=== PATIENT | male | born 1970 ===

== ENCOUNTER 2024-06-03 06:29 | Observation (INO) | payer BC ==
[~2024-06-03] VITALS: Ht 182.9 cm; Wt 169.8 kg
[2024-06-03] MEDS ORDERED: Chlorothiazide250 MG PO (06:46)
[2024-06-03] MEDS ORDERED: HYDCHL25 PO (06:47)
[2024-06-03] MEDS ORDERED: BENAZEPRIL HCL40 M1 PO (06:47)
[2024-06-03] MEDS ORDERED: METHI10 PO (06:48)
[2024-06-03 07:12] LABS: BASOPHILS ABSOLUTE AUTO 0.04 K/mm3 (0.00-0.23); BASOPHILS PERCENT AUTO 0 % (0-2); EOSINOPHILS ABSOLUTE AUTO 0.27 K/mm3 (0.00-0.68); EOSINOPHILS PERCENT AUTO 3 % (0-6); Hematocrit 48.1 % (37.0-53.0); Hemoglobin 14.7 g/dL (13.5-17.5); IMMATURE GRAN ABSOLUTE AUTO 0.05 K/mm3 (0.00-0.10); IMMATURE GRAN PERCENT AUTO 1 % (0-1); LYMPHOCYTES ABSOLUTE AUTO 2.21 K/mm3 (0.84-5.20); LYMPHOCYTES PERCENT AUTO 24 % (21-46); MONOCYTES PERCENT AUTO 9 % (4-13); Mean Corpuscular HGB 20.1 pg (26.0-34.0); Mean Corpuscular HGB Conc 30.6 g/dL (31.5-36.5); Mean Corpuscular Volume 66 fL (80-100); NEUTROPHILS ABSOLUTE AUTO 5.82 K/mm3 (1.96-9.15); NEUTROPHILS PERCENT AUTO 64 % (41-73); Platelet Count 239 K/mm3 (150-400); RDW Coefficient Variation 19.3 % (11.7-14.2); RDW Standard Deviation 38.7 fL (35.1-46.3); Red Blood Cell Count 7.33 M/mm3 (4.30-5.90); White Blood Cell Count 9.19 K/mm3 (4.00-11.30)
[2024-06-03 07:31] LABS: Albumin, Blood 3.5 g/dL (3.4-5.0); Albumin/Globulin Ratio 1.2 (0.8-1.8); Bilirubin, Total 0.4 mg/dL (0.1-1.0); Bun/Creatinine Ratio 14.6 (12.0-20.0); Calcium, Blood 8.7 mg/dL (8.5-10.1); Creatinine, Blood 0.89 mg/dL (0.60-1.20); Potassium, Blood 4.2 mmol/L (3.5-5.5); Total Protein, Blood 6.5 g/dL (6.4-8.2)
[2024-06-03 07:48] LABS: Mean Platelet Volume 10.8 fL (9.1-12.4)
[2024-06-03] MEDS ORDERED: Nitroglycerin 1 INCH/GM PKT TOP ONE (09:55)
[2024-06-03] MEDS ORDERED: Ondansetron HCl 2 MG / ML 2ML Vial IV PRN (10:45)
[2024-06-03] MEDS ORDERED: Acetaminophen 325 MG TABLET PO PRN (10:45)
[2024-06-03] MEDS ORDERED: Nitroglycerin 0.4 MG SUBL SL PRN (10:45)
[2024-06-03] MEDS ORDERED: FentaNYL Citrate 50 MCG/ML 2 ML Injection IV PRN (10:50)
[2024-06-03] MEDS ORDERED: HydrALAZINE HCl 20 MG / ML 1ML Vial IV PRN (10:50)
[2024-06-03] MEDS ORDERED: FLU VACC TS2024-25(6MOS UP)/PF 45 MCG/0.5 ML SYRINGE IM SCH (10:50)
[2024-06-03 11:20] LABS: CHOL/HDL RATIO 2.9; Cholesterol 165 mg/dL (50-200); Free Thyroxine 1.24 ng/dL (0.70-1.60); HDL Cholesterol 57 mg/dL (>39); LDL/HDL RATIO 1.6; Low Density Lipoprotein Chol 92 mg/dL (0-110); Triglycerides 78 mg/dL (30-160); Very Low Density Lipoprot Chol 15 mg/dL (6-32)
[2024-06-03 16:36] VITALS: BP 161/90
--- NOTE | 2024-06-03 18:12 | NUR ---
SHIFT SUMMARY PT ADMITTED FROM THE ED THIS AFTERNOON. STRESS TEST PERFORMED TODAY. PT REPORTS NO CHEST PAIN OR PRESSURE THIS SINCE COMING TO MEDICAL FLOOR. PT ON RA, TELE RUNNING SINUS RHYTHM IN THE 80'S. PT'S AND FATHER AT BEDSIDE. PT IS CURRENTLY RESTING IN BED.
[2024-06-03 20:23] VITALS: BP 138/79
[2024-06-04 05:01] VITALS: BP 146/93
[2024-06-04 05:37] LABS: BASOPHILS ABSOLUTE AUTO 0.03 K/mm3 (0.00-0.23); BASOPHILS PERCENT AUTO 0 % (0-2); EOSINOPHILS ABSOLUTE AUTO 0.32 K/mm3 (0.00-0.68); EOSINOPHILS PERCENT AUTO 4 % (0-6); Hematocrit 48.1 % (37.0-53.0); Hemoglobin 14.5 g/dL (13.5-17.5); IMMATURE GRAN ABSOLUTE AUTO 0.03 K/mm3 (0.00-0.10); IMMATURE GRAN PERCENT AUTO 0 % (0-1); LYMPHOCYTES ABSOLUTE AUTO 1.57 K/mm3 (0.84-5.20); LYMPHOCYTES PERCENT AUTO 20 % (21-46); MONOCYTES ABSOLUTE AUTO 0.77 K/mm3 (0.16-1.47); MONOCYTES PERCENT AUTO 10 % (4-13); Mean Corpuscular HGB 19.8 pg (26.0-34.0); Mean Corpuscular HGB Conc 30.1 g/dL (31.5-36.5); Mean Corpuscular Volume 66 fL (80-100); Mean Platelet Volume 10.2 fL (9.1-12.4); NEUTROPHILS ABSOLUTE AUTO 5.05 K/mm3 (1.96-9.15); NEUTROPHILS PERCENT AUTO 65 % (41-73); Platelet Count 225 K/mm3 (150-400); RDW Coefficient Variation 18.9 % (11.7-14.2); RDW Standard Deviation 38.8 fL (35.1-46.3); Red Blood Cell Count 7.33 M/mm3 (4.30-5.90); White Blood Cell Count 7.77 K/mm3 (4.00-11.30)
[2024-06-04 05:42] LABS: Bun/Creatinine Ratio 13.5 (12.0-20.0); Calcium, Blood 8.6 mg/dL (8.5-10.1); Creatinine, Blood 0.89 mg/dL (0.60-1.20); Potassium, Blood 4.2 mmol/L (3.5-5.5)
--- NOTE | 2024-06-04 07:22 | NUR ---
CONTACT PRINTER DRY FILM SUMMARY NO CHEST PAIN OVERNIGHT. STRESS TEST PART 2 TODAY. PT HASNT HAD ANY CAFFEINE AND IS EDUCATED ON WHAT TO AVOID.
[2024-06-04 07:28] VITALS: BP 168/97
[2024-06-04] MEDS ORDERED: HydroCHLOROthiazide 25 mg Tab PO SCH (09:00)
[2024-06-04] MEDS ORDERED: Lisinopril 20 MG Tab PO SCH (09:00)
[2024-06-04] MEDS ORDERED: methIMAzole 5 MG TABLET PO SCH (09:00)
[2024-06-04] MEDS ORDERED: Enoxaparin 40 MG/0.4 ML SYR SC SCH (09:00)
[2024-06-04] MEDS ORDERED: Aspirin 81 MG Chew PO SCH (09:00)
[2024-06-04] MEDS ORDERED: Aminophylline 250MG / 10ML 10 ML Vial ONE (13:34)
[2024-06-04] MEDS ORDERED: Regadenoson 0.4 MG/5 ML SYRINGE ONE (13:34)
[2024-06-04 15:52] VITALS: BP 153/84
--- NOTE | 2024-06-04 18:03 | NUR ---
DISCHARGE SUMMARY PT DISCHARGED TO HOME. PT LEFT PRIOR TO THIS NOTE VIA WHEELCHAIR WITH ASSISTED LIVING COORDINATOR ESCORT. PT AGREES TO FOLLOW UP SCHEDULED AND TO TAKE MEDICATIONS PRESCRIBED. IV DC'D AND BELONGINGS RETURNED, ALL QUESTIONS ANSWERED.
== END 2024-06-04 17:20 | disposition home or self-care (01) ==
LOC: ER 06:29 → MEDS 06:30
PROVIDERS: Emergency Medicine; ADMIT Family Medicine
DX: R07.89 Other chest pain (principal); I10 Essential (primary) hypertension; E05.90 Thyrotoxicosis, unspecified without thyrotoxic crisis or storm; E66.9 Obesity, unspecified; Z68.42 Body mass index [BMI] 45.0-49.9, adult; Z79.899 Other long term (current) drug therapy
CPT/HCPCS: 36415; 71045; 78452; 80048; 80053; 80061; 84439; 84443; 84481; 84484; 85025; 93005; 93010; 93017; 93306; 96372; 99285-25; A9270; A9500; G0378; J0280; J1650; J2785